=== PATIENT | male | born 1955 | race Caucasian/White ===

== ENCOUNTER 2024-10-01 13:46 | Outpatient (CLI) | payer MEDICARE, SELFPAY ==
--- OUTSIDE RECORDS SUMMARY | 2024-10-01 13:53 | XMS_ITS | Encounter Summary ---
Author Organization [facility] Address [facility] [place] [address] Care Team Providers Care Dining Room Tables Set Up Attendant Name Role Phone Guero Waldron MD Primary Care Provider [phone] Encounter Details Date Type Department Care Team (Late st Contact Info) Description 06/07/2021 Hospital Follow-up Call [place] [address] [place], [place] [id number] Kinga Qiu RN Social History Tobacco Use Types Packs/Day Years Used Date Smoking Tobacco: Former Cigarettes Q uit: 1980 Smokeless Tobacco: Never Alcohol Use Standard Drinks/Week Comments Yes 0 (1 standard drink = 0.6 oz pur e alcohol) couple beers a day Sex and Gender Information Value Date Recorded Sex Assigned at Not on file Legal Sex Male 11:23 PM CDT Gender Identity Not on file Sexual Orientation Not on file COVID-19 Exposure Response Date Recorded In the last month, have you been in contact with someone who was confirmed or suspected to have Coronavirus / COVID-19? No / Unsure 05/31/2021 1:14 AM CDT documented as of this encounter Functional Status * RETIRED Are you deaf or do you have serious difficulty hearing Answer Date of Assessment Author Status No 05/31/2021 5:36 AM CDT Activ e * RETIRED Are you blind or do you have serious difficulty seeing, even when wearing glasses? Answer Date of Assessment Author Status No 05/31/2021 5:36 AM CDT Activ e * Do you have serious difficulty walking or climbing stairs? Answer Date of Assessment Author Status Yes 05/31/2021 5:36 AM CDT Rafaela Quintana RN Active * Do you have difficulty dressing or bathing? Answer Date of Assessment Author Status No 05/31/2021 5:36 AM Rafaela Santana RN Active * Because of a physical, mental, or emotional condition, do you have difficulty doing errands alone such as visiting a doctor's office or shopping? Answer Date of Assessment Author Status No 05/31/2021 5:36 AM Rafaela Santana RN Active documented as of this encounter Mental Status * Because of a physical, mental, or emotional condition, do you have serious difficulty concentrating, remembering, or making decisions? Answer Entry Date Author Status No 05/31/2021 5:36 AM Rafaela Santana RN Active documented in this encounter Plan of Treatment Not on file documented as of this encounter Visit Diagnoses Not on filedocumented in this encounter Additional Health Concerns Infection Onset Date Last Indicated Resolved Time MRSA 07/13/2017 07/13/2017 documented as of this encounter Care Teams Dining Room Tables Set Up Attendant Relationship Specialty Start Date End Date Guero Waldron MD PCP - General FAMILY PRACTICE 03/31/21 documented as of this encounter
--- OUTSIDE RECORDS SUMMARY | 2024-10-01 13:53 | XMS_ITS | Encounter Summary ---
Author Organization [facility] Address [facility] [place] [address] Care Team Providers Care Certified Novell Engineer Name Role Phone Guero Waldron MD Primary Care Provider [phone] Encounter Details Date Type Department Care Team (Late st Contact Info) Description 01/25/2019 Abstract [facility] CONVERSION [address] [place] [address] , Generic Conversion, Social History Tobacco Use Types Packs/Day Years Used Date Smoking Tobacco: Never Assessed Sex and Gender Information Value Date Recorded Sex Assigned at Not on file Legal Sex Male 11:23 PM CDT Gender Identity Not on file Sexual Orientation Not on file documented as of this encounter Plan of Treatment Not on file documented as of this encounter Visit Diagnoses Not on filedocumented in this encounter Additional Health Concerns Infection Onset Date Last Indicated Resolved Time MRSA 07/13/2017 07/13/2017 COVID-19 Rule Out 05/31/2021 05/31/2021 05/31/2021 1:32 PM CDT documented as of this encounter Care Teams Certified Novell Engineer Relationship Specialty Start Date End Date Guero Waldron MD PCP - General FAMILY PRACTICE 03/31/21 documented as of this encounter
--- OUTSIDE RECORDS SUMMARY | 2024-10-01 13:53 | XMS_ITS | Clinical Summary ---
Author Organization [facility] Address [facility] [place] [address] Care Team Providers Care Utility Hand Name Role Phone Guero Waldron MD Primary Care Provider [phone] Allergies No known active allergies Medications furosemide 40 MG tablet Take 2 tablets by mouth daily. Active lisinopril 20 MG tablet Take 20 mg by mouth nightly at bedtime. 04/30/2021 Active allopurinol 100 MG tablet Take 1 tablet by mouth daily. Active gabapentin 300 MG capsule Take 2 capsules by mouth 3 (three) times daily. 11/14/2016 Active cyclobenzaprine 10 MG tablet 05/09/2021 Active loratadine 10 MG tablet 06/21/2020 Active magnesium oxide 400 (241.3 Mg) MG tablet 04/12/2021 Active potassium chloride CR 20 MEQ tablet 04/18/2021 Active sertraline 100 MG tablet 05/14/2021 Active sildenafil 20 MG tablet 07/17/2020 Active Active Problems Problem Noted Date Diagnosed Date T12 compression fracture (CMS/HCC HHS/HCC) 05/31 Immunizations Name Administration Dates Next Due Pneumococcal (Pneumovax 23) 06/01/2021 Family History Medical History Relation Comments No Known Problems Brother No Known Problems Father No Known Problems Maternal Aunt No Known Problems Maternal Grandfather No Known Problems Maternal Grandmother No Known Problems Maternal Uncle No Known Problems Mother No Known Problems Paternal Aunt No Known Problems Paternal Grandfather No Known Problems Paternal Grandmother No Known Problems Paternal Uncle No Known Problems Sister Relation Status Comments Brother Father Maternal Aunt Maternal Grandfather Maternal Grandmother Maternal Uncle Mother Paternal Aunt Paternal Grandfather Paternal Grandmother Paternal Uncle Sister Social History Tobacco Use Types Packs/Day Years Used Date Smoking Tobacco: Former Cigarettes Q uit: 1979 Smokeless Tobacco: Never Tobacco Cessation:Counseling Given: No Comments:patient is no longer smoking Alcohol Use Standard Drinks/Week Comments Yes 3.3 (1 standard drink = 0.6 oz p ure alcohol) couple beers a day PHQ-2 Answer Date Recorded PHQ-2 Score - If the patient scores above 3, please move on to questions 3-9 0 06/17/2021 Sex and Gender Information Value Date Recorded Sex Assigned at Not on file Legal Sex Male 11:23 PM CDT Gender Identity Not on file Sexual Orientation Not on file Last Filed Vital Signs Vital Sign Reading Time Taken Comments Blood Pressure 118/76 06/17/2021 8:56 AM CDT Pulse 86 06/17/2021 8:56 AM CDT Temperature 36.4 C (97.5 F) 06/04/2021 4:06 PM CDT Respiratory Rate 16 06/04/2021 12:17 PM CDT Oxygen Saturation 94% 06/17/2021 8:56 AM CDT Inhaled Oxygen Concentration - - Weight 101.2 kg (223 lb) 06/17/2021 8:56 AM CDT Height 172.7 cm (5' 8 ) 06/17/2021 8:56 AM CDT Body Mass Index 33.91 06/17/2021 8:56 AM CDT Plan of Treatment Health Maintenance Due Date Last Done Comments Colorectal Cancer Screening Colonoscopy (10 Years) 1955 Hepatitis C 1973 DTaP, Tdap and Td Vaccines ( 1 - Tdap) 1974 Zoster Vaccines (1 of 2) 2005 RSV Immunization or 60+ Years (1 - Risk 60-74 years 1-dose series) 2015 Annual Medicare Wellness Visit 2020 COVID-19 Vaccine (3 - 2023-2 5 season) 2024 11/16/2020, 10/26/2020 Influenza Adult (#1) 2024 Pneumococcal Vaccine: 65+ Years Completed 06/01/2021, 07/12/2020 Meningococcal B Vaccine Aged Out No l onger eligible based on patient's age to complete this topic Meningococcal Vaccine Aged Out No lucius roz eligible based on patient's age to complete this topic RSV Immunizations Under 20 Months Aged Out No longer eligible b ased on patient's age to complete this topic Additional Health Concerns Infection Onset Date Last Indicated MRSA 07/13/2017 07/13/2017 Insurance [employer] Advance Directives * Full Code (Latest Code Status on File) Date Activated Date Inactivated Comments 06/01/2021 1:03 PM 06/04/2021 8:44 PM Care Teams Utility Hand Relationship Specialty Start Date End Date Guero Waldron MD PCP - General FAMILY PRACTICE 03/31/21
--- OUTSIDE RECORDS SUMMARY | 2024-10-01 13:53 | XMS_ITS ---
Author Organization Unknown Address [address] [place] [phone] Phone Care Team Providers Care Wood Model Builder Name Role Phone ALIVIA Sofia Attending Unavailable TRIXIE FOSTER CRNA Unavailable MANAS Prado Primary Unavailable Immunization Immunization Date Status Additional Notes Code Code System pneumococcal polysaccharide PPV23 06/01/2021 Completed 33 CVX pneumococcal polysaccharide PPV23 11/21/2021 Completed 33 CVX Tdap 12/16/2018 Completed 115 CVX Pneumococcal conjugate PCV 13 07/12/2020 Completed 133 CVX Influenza, split virus, trivalent, preservative 08/29/2012 Completed 141 CVX Influenza, split virus, trivalent, preservative 05/12/2014 Completed 141 CVX Influenza, split virus, quadrivalent, preservative 05/15/2017 Completed 158 C VX Influenza, split virus, quadrivalent, preservative 05/08/2018 Completed 158 C VX Influenza, split virus, quadrivalent, preservative 05/16/2019 Completed 158 C VX Influenza, split virus, quadrivalent, preservative 04/28/2020 Completed 158 C VX Influenza, split virus, quadrivalent, preservative 05/04/2021 Completed 158 C VX Influenza, split virus, quadrivalent, preservative 04/26/2022 Completed 158 C VX Influenza, split virus, quadrivalent, preservative 04/26/2023 Completed 158 C VX zoster recombinant 08/31/2022 Completed 187 CVX zoster recombinant 11/09/2022 Completed 187 CVX COVID-19, mRNA, LNP-S, PF, 3 0 mcg/0.3 mL dose 10/26/2020 Completed 208 CVX COVID-19, mRNA, LNP-S, PF, 3 0 mcg/0.3 mL dose 11/16/2020 Completed 208 CVX COVID-19, mRNA, LNP-S, PF, 3 0 mcg/0.3 mL dose 08/04/2021 Completed 208 CVX COVID-19, mRNA, LNP-S, bivalent, PF, 30 mcg/0.3 mL dose 06/22/2022 Completed 300 CVX Social History Type Status Start Date End Date Code Code Syst em Smoking History Former smoker 5453529 SNOMED CT Sex Male Vital Signs Vital Sign Value Unit [place] Value [place] Unit Date/Time Recent/Initial? Code Code System Body Mass Index 36.32 kg/m2 08/08/2024 11:54 Most Recent 21771 -5 LOINC Body Mass Index 36.32 kg/m2 08/04/2024 10:23 Initial 46045 -5 LOINC Systolic Blood Pressure 146 mm[Hg] 08/08/2024 11:54 Initial 8480- 6 LOINC Diastolic Blood Pressure 78 mm[Hg] 08/08/2024 11:54 Initial 8462- 4 LOINC Body Surface Area 2.18 m2 08/08/2024 11:54 Most Recent 3140- 1 LOINC Body Surface Area 2.18 m2 08/04/2024 10:23 Initial 3140- 1 LOINC Height 167.640 0 cm 66.00 in 08/08/2024 11:54 Most Recent 8302- 2 LOINC Height 167.640 0 cm 66.00 in 08/04/2024 10:23 Initial 8302- 2 LOINC O2 Saturation 95 % 2023 11:54 Initial 53482 -5 LOINC Pulse 46.0 /min 08/08/2024 11:54 Initial 8867- 4 LOINC Respiration 18 /min 08/08/20 11:54 Initial 9279- 1 LOINC Temperature 36.4 [place] 97.5 F 08/08/20 11:54 Initial 8310- 5 LOINC Weight 102.06 kg 225.00 lbs 08/08/2024 11:54 Most Recent 16060 -7 LOINC Weight 102.06 kg 225.00 lbs 08/04/2024 10:23 Initial 54165 -7 LOINC Medications Medication Start Date End Date Route Frequency Dose Code Code System Medication Instructions Home Meds Xalatan 0.005% Ophthalmic Solution 04/01/2023 Unknown BOTH EYES AT BEDTIME 1 drop 704618 RxNorm INSTILL IN 1 drop BOTH EYES AT BEDTIME diphenhydrAMINE HCl 25MG Oral Capsule 04/01/2023 Unknown ORAL NEEDED AT BEDTIME 25 MILLIGRAMS 5985707 RxNorm TAKE 25 MILLIGRAMS ORAL NEEDED AT BEDTIME I-Vicente Lutein 200 MG-2 MG-2 MG-0.055 MG-1000 INTERNATIONAL UNITS-60 INTERNATIONAL UNITS-40 MG Oral Tablet 04/01/2023 Unknown ORAL ONCE A DAY 1 TABLET 474073 RxNorm TAKE 1 TABLET ORAL ONCE A DAY Calcium 600MG Oral Tablet 08/08/2024 Unknown ORAL TWICE A DAY 600 MILLIGRAMS 551301 RxNorm TAKE 600 MILLIGRAMS ORAL TWICE A DAY Melatonin 5 MG Oral Capsule 08/08/2024 Unknown ORAL AT BEDTIME 5 MG 336380 RxNorm TAKE 5 MG ORAL AT BEDTIME Potassium Chloride 20MEQ Oral Tablet, Extended Release 08/08/2024 Unknown ORAL ONCE A DAY 40 MEQ 5795940 RxNorm TAKE 40 MEQ ORAL ONCE A DAY Propranolol HCl 10MG Oral Tablet 08/08/2024 Unknown ORAL TWICE A DAY 10 MILLIGRAMS 691035 RxNorm TAKE 10 MILLIGRAMS ORAL TWICE A DAY Sertraline HCl 100MG Oral Tablet 08/08/2024 Unknown ORAL AT BEDTIME 200 MILLIGRAMS 913415 RxNorm TAKE 200 MILLIGRAMS ORAL AT BEDTIME Vitamin D3 50 MCG Oral Tablet 08/08/2024 Unknown ORAL ONCE A DAY 50 MCG 527677 RxNorm TAKE 50 MCG ORAL ONCE A DAY Assessment You had the following problems:CELLULITIS Hospital Discharge Instructions Should you have any questions prior to discharge, please contact a member of your healthcare team. If you have left the hospital and have any questions, please contact your primary care physician. Reason For Referral No Data Found Procedures Procedure Name Date Status Code Code Syste m Anesthesia for upper gastroi ntestinal endoscopic procedures, endoscope int 08/08/2024 completed 44164 CPT Esophagogastroduodenoscopy, flexible, transoral; with biopsy, single or mu 08/08/2024 completed 49405 CPT Problems Problem Start Date Resolved Date Status Code Code System CELLULITIS active 072351447 Picture Production CompanyOMED-CT Allergies and Adverse Reactions Allergy Substance Reaction Severity Start Date Concern Status Code Code System SULFA (sulfonamide) Rash (SNOMED-CT: 168012046) Active 50147131 SNOMED-CT Plan of Treatment CT Abdomen W Contrast (62750) 0 EGD 08/08/2024 Encounters Encounter Diagnosis Start Date Code Code Sys tem Gastritis, unspecified, without bleeding 08/08/2024 SNOMED-CT Personal Care Team Section Performer Name Performer Role Active Date Inactive BLAIRE Humphreys BRUCE PCP - Primary care physician 2024-08-05
--- OUTSIDE RECORDS SUMMARY | 2024-10-01 13:53 | XMS_ITS ---
Author Organization Unknown Address [address] [place] [phone] Phone Care Team Providers Care District Customs Director Name Role Phone CATRINA Cedeno Attending Unavailable MANAS Prado Primary Unavailable Immunization Immunization [...] mcg/0.3 mL dose 06/22/2022 Completed 300 CVX Results ALPHA PROTEIN SERUM(RE F) - Collect Date/Time: 09/29/2024 14:46 [facility] ID: [id number] [address] [place] [address], [id number] LOINC: 15773-9 Test Value Unit Reference Range Code Code System Flag AFP, Serum, Tumor Marker <1.8 0.0-8.4 84452-6 LOINC LIVER PROFILE - Collect Date /Time: 09/29/2024 14:46 [facility] ID: [id number] [address] [place] [address], [id number] LOINC: 40458-8 Test Value Unit Reference Range Code Code System Flag ALT 41 U/L L=9 H=72 1742-6 LOINC AST 45 U/L L=15 H=46 1920-8 LOINC ALKALINE PHOS 82 U/L L=38 H=126 6768-6 LOINC TOTAL PROTEIN 7.2 g/L L=6.3 H=8.2 2885-2 LOINC TOTAL BILI 1.4 mg/dL L=0.2 H=1.3 1974-2 LOINC H DIRECT BILI 0.0 mg/dL L=0.0 H=0.3 1967-7 LOINC INDIRECT BILI 0.90 mg/dL L=0.00 H=1.10 1970- LOINC ALBUMIN 3.6 G/dL L=3.5 H=5.0 1751-7 LOINC Social History Type Status Start Date End Date Code Code Syst em Smoking History Former smoker 4838732 SNOMED CT Sex Male Medications Medication Start Date End Date Route Frequency Dose Code Code System Medication Instructions Home Meds Xalatan 0.005% Ophthalmic Solution 04/01/2023 Unknown BOTH EYES AT BEDTIME 1 drop 260369 RxNorm INSTILL IN 1 drop BOTH EYES AT BEDTIME diphenhydrAMINE HCl 25MG Oral Capsule 04/01/2023 Unknown ORAL NEEDED AT BEDTIME 25 MILLIGRAMS 1079349 RxNorm TAKE 25 MILLIGRAMS ORAL NEEDED AT BEDTIME I-Vicente Lutein 200 MG-2 MG-2 MG-0.055 MG-1000 INTERNATIONAL UNITS-60 INTERNATIONAL UNITS-40 MG Oral Tablet 04/01/2023 Unknown ORAL ONCE A DAY 1 TABLET 567182 RxNorm TAKE 1 TABLET ORAL ONCE A DAY Calcium 600MG Oral Tablet 08/08/2024 Unknown ORAL TWICE A DAY 600 MILLIGRAMS 203067 RxNorm TAKE 600 MILLIGRAMS ORAL TWICE A DAY Melatonin 5 MG Oral Capsule 08/08/2024 Unknown ORAL AT BEDTIME 5 MG 691257 RxNorm TAKE 5 MG ORAL AT BEDTIME Potassium Chloride 20MEQ Oral Tablet, Extended Release 08/08/2024 Unknown ORAL ONCE A DAY 40 MEQ 9723400 RxNorm TAKE 40 MEQ ORAL ONCE A DAY Propranolol HCl 10MG Oral Tablet 08/08/2024 Unknown ORAL TWICE A DAY 10 MILLIGRAMS 062378 RxNorm TAKE 10 MILLIGRAMS ORAL TWICE A DAY Sertraline HCl 100MG Oral Tablet 08/08/2024 Unknown ORAL AT BEDTIME 200 MILLIGRAMS 292696 RxNorm TAKE 200 MILLIGRAMS ORAL AT BEDTIME Vitamin D3 50 MCG Oral Tablet 08/08/2024 Unknown ORAL ONCE A DAY 50 MCG 497282 RxNorm TAKE 50 MCG ORAL ONCE A DAY Assessment You had the following problems:CELLULITIS Hospital Discharge Instructions Should you have any questions prior to discharge, please contact a member of your healthcare team. If you have left the hospital and have any questions, please contact your primary care physician. Reason For Referral No Data Found Problems Problem Start Date Resolved Date Status Code Code System CELLULITIS active 137656218 SNOMED-CT Allergies and Adverse Reactions Allergy Substance Reaction Severity Start Date Concern Status Code Code System SULFA (sulfonamide) Rash (SNOMED-CT: 723210415) Active 32835225 SNOMED-CT Plan of Treatment CT Abdomen W Contrast (87256) 0 EGD 08/08/2024 Encounters Encounter Diagnosis Start Date Code Code Sys tem Alcoholic cirrhosis of liver without ascites 5 SNOMED-CT Personal Care Team Section Performer Name Performer Role Active Date Inactive Da BLAIRE Felipe BRUCE PCP - Primary care physician 2024-08-05
--- NOTE | 2024-10-01 14:30 | NEURO_ITS ---
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 Non-diabetic. ? # No motor or sensory responses could be obtained with maximum stimuli. ? # Needle/EMG exam not requested. ? # Clinical correlation recommended. Nerve Conduction Studies Anti Sensory Summary Table ?Stim Site NR Peak (ms) P-T Amp (?V) Site1 Site2 Delta-P (ms) Dist (cm) Dhiraj (m/s) Right Sup Fibular Anti Sensory (Ant Lat Mall)??? NO RESPONSE 14 cm NR 14 cm Ant Lat Mall 16.0 Right Sural Anti Sensory (Lat Mall)??? NO RESPONSE Calf NR Calf Lat Mall 16.0 Motor Summary Table ?Stim Site NR Onset (ms) O-P Amp (mV) Site1 Site2 Delta-0 (ms) Dist (cm) Dhiraj (m/s) Right Peroneal Motor (Vastus Med)??? NO RESPONSE Ankle NR Popit Ankle 0.0 Popit NR Right Tibial Motor ([place] Brev)??? NO RESPONSE Ankle NR Knee Ankle 0.0 Knee NR F Wave Studies ?NR F-Lat (ms) L-R F-Lat (ms) Right Peroneal (Mrkrs) (EDB)??? NO RESPONSE NR Right Tibial (Mrkrs) (Abd Hallucis)??? NO RESPONSE NR ? MTDD
== END 2024-10-01 13:47 | disposition home or self-care (01) ==
PROVIDERS: PCP Physician Assistant; Visit Provider Family Medicine
DX: M21.371 Foot drop, right foot (principal); L81.9 Disorder of pigmentation, unspecified
CPT/HCPCS: 95908